=== PATIENT | female | born 1970 | race Caucasian/White ===

== ENCOUNTER 2024-02-23 15:26 | Outpatient (OUT) | payer OTHER, SELFPAY ==
--- NOTE | 2024-02-23 15:40 | MR_ITS ---
[facility] [id number] Patient Name: SAMPSON MAKI MRN: [id number] date: 1970 Sex: F Assigned Patient Location: MRI Current Patient Location: Accession/Order Number: [id number] Exam Date: 02/23/2024 15:50 Report Date: 02/24/2024 10:05 At the request of: PURA ZAMORA Procedure: MR lumbar spine wo con MR lumbar spine wo con, 02/23/2024 3:50 PM EDT INDICATION: Lumbar Spondylosis, Lumbar Radiculopathy COMPARISON: There is no appropriate prior study for comparison. TECHNIQUE: Multiplanar, multisequential MRI images of lumbar spine were obtained without contrast. FINDINGS: For dictation purposes, the lowest complete disc space in the lumbar spine considered as L5-S1. There is normal physiologic lumbar lordosis. The vertebral height is preserved. The conus medullaris is at the level of L1. No signal abnormality within the visualized spinal cord is noted. There is signal abnormality on T1 and T2-weighted images in the vertebral bodies of visualized spine that may suggest bone marrow reconversion in appropriate clinical setting. Level of T12-L1, there is mild right neuroforaminal narrowing. No canal stenosis. At the level of L1-L2, there are disc bulge with mild right neuroforaminal narrowing and no canal stenosis. At the level of L2-L3, there are disc bulge with mild bilateral neuroforaminal narrowing and no canal stenosis. At the level of L3-4, there are disc bulge with moderate bilateral neuroforaminal narrowing and moderate canal stenosis. At the level of L4-5, there are grade 1 anterolisthesis uncovering disc with moderate bilateral neuroforaminal narrowing and severe canal stenosis. There is facet joint arthrosis and ligamentum flavum thickening and epidural lipomatosis at this level. At the level of L5-S1, there are disc bulge with mild bilateral neuroforaminal narrowing and no canal stenosis. The paraspinal muscles are unremarkable. MR/MR lumbar spine wo con IMPRESSION: Mild to moderate degenerative changes of lumbar spine in particular at L3-L4 and L4-L5. Electronically authenticated by: SANDRO GEORGE Date: 02/24/2024 10:05
== END 2024-02-23 15:27 | disposition home or self-care (01) ==
LOC: MRI 15:31
PROVIDERS: PCP Family Medicine; Visit Provider Family Medicine
DX: M47.816 Spondylosis without myelopathy or radiculopathy, lumbar region (principal); M54.16 Radiculopathy, lumbar region
CPT/HCPCS: 72148